=== PATIENT | male | born 1970 | race African-American/Black ===

== ENCOUNTER 2018-01-28 12:07 | Observation (INO) | payer OTHER ==
[~2018-01-28] VITALS: Ht 170.2 cm; Wt 104.9 kg
[2018-01-28 12:13] VITALS: BP 171/122; TEMP 98.1
[2018-01-28 12:59] LABS: PLATELET COUNT 183 K/uL (142-355)
[2018-01-28 13:07] LABS: POTASSIUM 3.9 mmol/L (3.6-5.2); SODIUM 140 mmol/L (136-145)
[2018-01-28 20:00] VITALS: BP 147/102; TEMP 98.5
[2018-01-28 22:04] VITALS: BP 147/102; TEMP 98.5; Ht 170.2 cm; Wt 104.9 kg
[2018-01-29] VITALS: BP 160/104; TEMP 97.7
[2018-01-29 04:00] VITALS: BP 150/90; TEMP 97.5
[2018-01-29 08:00] VITALS: BP 166/101; TEMP 97.7
[2018-01-29 12:00] VITALS: BP 148/93; TEMP 98.9
[2018-01-29 16:00] VITALS: BP 179/98; TEMP 97.8
[2018-01-29 20:00] VITALS: BP 172/91; TEMP 97.5
[2018-01-30 00:15] VITALS: BP 147/83; TEMP 97.9
[2018-01-30 04:00] VITALS: BP 152/95; TEMP 98
[2018-01-30 07:48] LABS: PLATELET COUNT 171 K/uL (142-355)
[2018-01-30 08:00] VITALS: BP 149/97; TEMP 98.4
[2018-01-30 08:07] LABS: POTASSIUM 4.5 mmol/L (3.6-5.2)
[2018-01-30] MEDS ORDERED: AMLODIPINE BESYLATE PO (09:05)
== END 2018-01-30 10:20 | disposition home or self-care (01) ==
LOC: ED 12:07 → MED/SURG 16:40
PROVIDERS: ADMIT Emergency Medicine
DX: I10 Essential (primary) hypertension (principal); R51 Headache; E86.0 Dehydration
CPT/HCPCS: 36415; 80053; 82550; 82553; 84484; 85027; 93005; 96374; 96375; 99220; 99284; G0378; J1100; J1200; J1885; J2175; J2405; J3490